=== PATIENT | female | born 1970 | race American Indian/Alaskan Native ===

== ENCOUNTER 2016-09-13 16:37 | Emergency (ER) | payer SELFPAY ==
[2016-09-13 16:48] VITALS: BP 147/90; RESP 18; TEMP 98; O2SAT 100
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
[2016-09-13 17:59] LABS: BASO % 0.2 % (0.0-2.0); EOS % 0.6 % (0.0-4.0); HEMATOCRIT 33.1 % (34.0-47.0); LYMPH % 38.5 % (20.0-40.0); MEAN CORPUSCULAR HEMOGLOBIN 30.1 pg (27.0-31.0); MEAN CORPUSCULAR HGB CONC 33.1 g/dL (33.0-37.0); MEAN PLATELET VOLUME 8.6 fL (7.2-11.7); MONO # 0.6 K/uL (0.0-0.8); MONO % 7.3 % (0.0-10.0); RED CELL DISTRIBUTION WIDTH 13.3 % (11.5-14.5); WHITE BLOOD COUNT 7.7 K/uL (4.8-10.8)
--- NOTE | 2016-09-13 17:59 | RAD ---
HISTORY: chest pain COMPARISON: None available. TECHNIQUE: Chest PA and lateral FINDINGS: Examination limited by habitus. LUNGS: No focal consolidation. Please note that chest x-ray has limited sensitivity for the detection of pulmonary masses. PLEURA: No significant pleural effusion identified. No definite pneumothorax . CARDIOVASCULAR: The cardiomediastinal silhouette appears within normal limits of size. OSSEOUS STRUCTURES: No acute osseous abnormality identified. VISUALIZED UPPER ABDOMEN: Unremarkable. OTHER FINDINGS: None. IMPRESSION: No focal consolidation, significant pleural effusion, or definite pneumothorax identified.
[2016-09-13 18:07] LABS: CHLORIDE 101 mmol/L (98-107); POTASSIUM 3.7 mmol/L (3.6-5.2); SODIUM 139 mmol/L (132-148)
[2016-09-13 18:09] LABS: GFR AFRICAN-AMERICAN > 60
[2016-09-13 18:10] LABS: BLOOD UREA NITROGEN 11 mg/dL (7-17); CALCIUM 8.4 mg/dl (8.6-10.4); CARBON DIOXIDE 27 mmol/L (22-30); GLUCOSE,RANDOM 77 mg/dL (65-105)
[2016-09-13 18:45] VITALS: PULSE 87
== END 2016-09-13 18:45 | disposition home or self-care (01) ==
LOC: C.ER 16:37
DX: F41.9 Anxiety disorder, unspecified (principal); R07.89 Other chest pain
CPT/HCPCS: 71020; 80048; 84484; 85025; 96374; 99285; J1885

== ENCOUNTER 2016-10-31 10:02 | Emergency (ER) | payer SELFPAY ==
[2016-10-31 10:11] VITALS: TEMP 98.4
[2016-10-31] MEDS ORDERED: Sodium Chloride 0.9% 1,000 ML IV ONE (10:57)
--- NOTE | 2016-10-31 10:58 | C.PDOC ---
History Of Present Illness 46 y/o female with Hx of HTN presents to ED with complaints of generalized weakness and left side headache since Thursday. Patient was seen [place] [facility] [place] for heat exhaustion after being outside working for september hours; pt c/o headache left side since then, despite taking ibuprofen 800 mg by mouth several times a day, with photophobia, no nausea, neck stiffness, fever or chills. pt also c/o generalized weakness. Time Seen by Provider: 10/31/16 10:28 Chief Complaint (Nursing): Headache History Per: Patient History/Exam Limitations: no limitations Onset/Duration Of Symptoms: Days Current Symptoms Are (Timing): Still Present Past Medical History Reviewed: Historical Data, Nursing Documentation, Vital Signs Vital Signs: Last Vital Signs Temp 98.4 F 10/31/16 10:10 Pulse 90 10/31/16 12:45 Resp 14 10/31/16 12:45 BP 144/71 10/31/16 12:45 Pulse Ox 100 10/31/16 14:46 - Medical History PMH: HTN Family History: States: Unknown Family Hx - Social History Hx Alcohol Use: No Hx Substance Use: No - Immunization History Hx Tetanus Toxoid Vaccination: No Hx Influenza Vaccination: No Hx Pneumococcal Vaccination: No Review Of Systems Constitutional: Negative for: Fever, Chills Eyes: Negative for: Vision Change Gastrointestinal: Negative for: Nausea, Vomiting, Diarrhea Genitourinary: Negative for: Dysuria Skin: Negative for: Rash Neurological: Positive for: Headache. Negative for: Weakness, Dizziness Physical Exam - Physical Exam Appears: Non-toxic, No Acute Distress Skin: Normal Color, Warm Head: Atraumatic, Normacephalic Eye(s): bilateral: Normal Inspection, PERRL, EOMI Oral Mucosa: Moist Tongue: Normal Appearing Lips: Normal Appearing Chest: Symmetrical, No Deformity, No Tenderness Cardiovascular: Rhythm Regular, No Murmur Respiratory: Normal Breath Sounds, No Rales, No Rhonchi, No Wheezing Gastrointestinal/Abdominal: Bowel Sounds, Soft, No Tenderness Extremity: Normal ROM, No Tenderness, No Pedal Edema Neurological/Psych: Oriented x3, Normal Speech, Normal Cognition, Normal Cranial Nerves, Normal Motor, Normal Sensation, Normal Reflexes Gait: Steady ED Course And Treatment - Laboratory Results Result Diagrams: 10/31/16 11:15 10/31/16 11:15 O2 Sat by Pulse Oximetry: 100 (RA) Pulse Ox Interpretation: Normal Medical Decision Making Medical Decision Making: pt feeling much better after ivf and iv reglan, headache resolved. labs normal. will d/c with pmd f/u. pt has been lying on stretcher through entire ed stay talking on phone in no acute distress. Disposition Counseled Patient/Family Regarding: Diagnosis, Need For Followup - Disposition Referrals: Mohinder Su Jr., MD [Medical Doctor] - Disposition: HOME/ ROUTINE Disposition Time: 12:34 Condition: IMPROVED Additional Instructions: Stay well hydrated. Follow up with your doctor in a few days. Return to ER for any worsening symptoms. 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 - Scribe Statement The provider has reviewed the documentation as recorded by the Scribguerline Andrews All medical record entries made by the Michelaibguerline were at my direction and personally dictated by me. I have reviewed the chart and agree that the record accurately reflects my personal performance of the history, physical exam, medical decision making, and the department course for this patient. I have also personally directed, reviewed, and agree with the discharge instructions and disposition.
[2016-10-31] MEDS ORDERED: Sodium Chloride 0.9% 1,000 ML ONE (11:13)
[2016-10-31 11:24] LABS: BASO % 0.2 % (0.0-2.0); EOS % 0.7 % (0.0-4.0); HEMATOCRIT 32.4 % (34.0-47.0); LYMPH # 1.8 K/uL (1.0-4.3); LYMPH % 30.1 % (20.0-40.0); MEAN CELL VOLUME 90.5 fL (81.0-99.0); MEAN CORPUSCULAR HEMOGLOBIN 31.2 pg (27.0-31.0); MEAN CORPUSCULAR HGB CONC 34.5 g/dL (33.0-37.0); MEAN PLATELET VOLUME 7.6 fL (7.2-11.7); MONO # 0.4 K/uL (0.0-0.8); MONO % 7.2 % (0.0-10.0); NRBC % 0.1 % (0.0-2.0)
[2016-10-31 11:39] LABS: CHLORIDE 105 mmol/L (98-107); POTASSIUM 3.8 mmol/L (3.6-5.2); SODIUM 140 mmol/L (132-148)
[2016-10-31 11:42] LABS: BLOOD UREA NITROGEN 15 mg/dL (7-17); CARBON DIOXIDE 27 mmol/L (22-30); GFR AFRICAN-AMERICAN > 60
[2016-10-31 11:43] LABS: CALCIUM 9.3 mg/dl (8.6-10.4); GLUCOSE,RANDOM 94 mg/dL (65-105); MAGNESIUM 2.1 mg/dL (1.6-2.3)
[2016-10-31 12:46] VITALS: BP 144/71; PULSE 90; RESP 14
[2016-10-31 12:51] VITALS: O2SAT 100
== END 2016-10-31 12:48 | disposition home or self-care (01) ==
LOC: C.ER 10:02
DX: R51 Headache (principal)
CPT/HCPCS: 80048; 83735; 85025; 96361; 96374; 99284; J2765; J7040

== ENCOUNTER 2017-07-30 03:35 | Inpatient (IN) | payer MEDICAID, OTHER ==
[2017-07-30 03:35] VITALS: BMI 34.1
--- NOTE | 2017-07-30 03:55 | C.PDOC ---
History Of Present Illness The patient presents to the ED for evaluation of a chest tightness and pressure- like sensation which began yesterday. 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 Patient took Ibuprofen at around 2300 today but presents to the ED because she still feels discomfort. She denies fever, chills, nausea, vomiting, extremity weakness. Time Seen by Provider: 07/30/17 03:55 Chief Complaint (Nursing): Chest Pain History Per: Patient History/Exam Limitations: no limitations Onset/Duration Of Symptoms: Hrs Current Symptoms Are (Timing): Still Present Severity: Moderate Pain Scale Rating Of: 4 Quality: Dull, Aching, Tightness, "Pain" Modifying Factors: None Exacerbating Factors: None Alleviating Factors: None Recent travel outside of the [place]: No Additional History Per: Patient Past Medical History Reviewed: Historical Data, Nursing Documentation, Vital Signs Vital Signs: Last Vital Signs Temp 97.8 F 07/30/17 03:47 Pulse 104 H 07/30/17 03:47 Resp 18 07/30/17 03:47 BP 134/96 H 07/30/17 03:47 Pulse Ox 99 07/30/17 04:48 - Medical History PMH: HTN Denies: Chronic Kidney Disease Surgical History: No Surg Hx Family History: States: No Known Family Hx - Social History Hx Alcohol Use: No Hx Substance Use: No - Immunization History Hx Tetanus Toxoid Vaccination: No Hx Influenza Vaccination: No Hx Pneumococcal Vaccination: No Review Of Systems Constitutional: Negative for: Fever, Chills Cardiovascular: Positive for: Other (chest tightness and pressure ). Negative for: Palpitations Respiratory: Negative for: Cough, Shortness of Breath Gastrointestinal: Negative for: Nausea, Vomiting, Abdominal Pain, Diarrhea Skin: Negative for: Rash, Lesions, Jaundice, Bruising Neurological: Negative for: Weakness, Numbness Psych: Negative for: Anxiety Physical Exam - Physical Exam Appears: Non-toxic, No Acute Distress Skin: Warm, Dry Head: Normacephalic Eye(s): bilateral: Normal Inspection Oral Mucosa: Moist Neck: Supple Chest: Symmetrical, No Deformity, No Tenderness Cardiovascular: Rhythm Regular, No Murmur Respiratory: No Rales, No Rhonchi, No Wheezing Extremity: Normal ROM, Capillary Refill (less than 2 seconds ) Extremity: Bilateral: Atraumatic Pulses: Left Dorsalis Pedis: Normal, Right Dorsalis Pedis: Normal Neurological/Psych: Oriented x3 Gait: Steady ED Course And Treatment - Laboratory Results Result Diagrams: 07/30/17 04:42 07/30/17 04:42 ECG: Interpreted By Me, Viewed By Me ECG Rhythm: Sinus Rhythm (95), Nonspecific Changes O2 Sat by Pulse Oximetry: 99 (on RA ) Pulse Ox Interpretation: Normal Progress Note: Bloodwork, urinalysis, EKG, CXR ordered and reviewed. Aspirin PO administered. Disposition Discussed With DrLaura: Jef Shetty Comment: accepted the pt on his service and took over the care at 5:45 AM Doctor Will See Patient In The: ED Counseled Patient/Family Regarding: Studies Performed, Diagnosis - Disposition Disposition: HOSPITALIZED Disposition Time: 03:55 Condition: FAIR Forms: [facility] (Uzbek) - Clinical Impression Clinical Impression: Chest pain - Scribe Statement The provider has reviewed the documentation as recorded by the Scribe (Lata Eng) Provider Attestation: All medical record entries made by the Scribe were at my direction and personally dictated by me. I have reviewed the chart and agree that the record accurately reflects my personal performance of the history, physical exam, medical decision making, and the department course for this patient. I have also personally directed, reviewed, and agree with the discharge instructions and disposition. Decision To Admit - Pt Status Changed To: Hospital Disposition Of: Observation - . Bed Request Type: Telemetry () Patient Diagnosis: Chest pain
[2017-07-30] MEDS ORDERED: Aspirin 325 mg EC Tablets PO STA (04:09)
[2017-07-30] MEDS ORDERED: Aspirin 325 mg EC Tablets PO ONE (04:26)
[2017-07-30 04:46] LABS: BASO % 0.5 % (0.0-2.0); EOS # 0.1 K/uL (0.0-0.7); HEMOGLOBIN 12.2 g/dL (11.0-16.0); LYMPH # 3.5 K/uL (1.0-4.3); LYMPH % 41.9 % (20.0-40.0); MEAN CELL VOLUME 88.9 fL (81.0-99.0); MEAN CORPUSCULAR HEMOGLOBIN 30.7 pg (27.0-31.0); MEAN CORPUSCULAR HGB CONC 34.5 g/dL (33.0-37.0); MEAN PLATELET VOLUME 7.4 fL (7.2-11.7); MONO # 0.5 K/uL (0.0-0.8); NEUT # 4.2 K/uL (1.8-7.0); NEUT % 50.6 % (50.0-75.0); NRBC % 0.1 % (0.0-2.0); RBC 3.97 Mil/uL (3.80-5.20); RED CELL DISTRIBUTION WIDTH 12.7 % (11.5-14.5); WHITE BLOOD COUNT 8.3 K/uL (4.8-10.8)
[2017-07-30 04:54] LABS: PROTHROMBIN TIME 11.4 SECONDS (9.7-12.2)
[2017-07-30 05:07] LABS: ALB/GLOB RATIO 1.1 (1.0-2.1); ALBUMIN 4.2 g/dL (3.5-5.0); ALT/SGPT 31 U/L (9-52); AST/SGOT 24 U/L (14-36); BLOOD UREA NITROGEN 13 mg/dL (7-17); GFR AFRICAN-AMERICAN > 60; GFR NON-AFRICAN AMERICAN > 60
[2017-07-30 05:54] LABS: SQUAMOUS EPITHIAL < 1 /hpf (0-5); URINE BACTERIA RARE (<OCC); URINE BILIRUBIN NEGATIVE (NEGATIVE); URINE CLARITY Clear (Clear); URINE COLOR Straw (YELLOW); URINE GLUCOSE (UA) NORMAL (Normal); URINE LEUKOCYTE ESTERASE NEG Leu/uL (Negative); URINE PROTEIN NEGATIVE (NEGATIVE); URINE UROBILINOGEN NORMAL mg/dL (0.2-1.0)
[2017-07-30 06:02] LABS: HCG,QUALITATIVE URINE NEGATIVE (NEGATIVE)
[2017-07-30 06:03] LABS: URINE BLOOD NEGATIVE (NEGATIVE)
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
[2017-07-30 12:11] LABS: HDL CHOLESTEROL 41 mg/dL (30-70)
[2017-07-30 12:22] LABS: CK-MB < 0.22 ng/mL (0.0-3.38); LDL CHOLESTEROL 143 mg/dL (0-129)
--- NOTE | 2017-07-30 15:53 | CARD ---
APPROVED REPORT EXAM: Two-dimensional and M-mode echocardiogram with Doppler and color Doppler. Other Information Quality : GoodRhythm : INDICATION Dyspnea Chest Pain Palpitations RISK FACTORS Hypertension 2D DIMENSIONS IVSd0.8 (0.7-1.1cm)LVDd4.7 (3.9-5.9cm) PWd0.9 (0.7-1.1cm)LVDs2.7 (2.5-4.0cm) FS (%) 43.2 %LVEF (%)74.3 (>50%) M-Mode DIMENSIONS Left Atrium (MM)3.34 (2.5-4.0cm)Aortic Root3.06 (2.2-3.7cm) Aortic Cusp Exc.2.08 (1.5-2.0cm) Mitral Valve MV E Craqmlvz07.3cm/sMV A Dgzmjtho70.0cm/sE/A ratio1.0 TDI E/Lateral E'0.0E/Medial E'0.0 Tricuspid Valve TR Peak Puncbimf101gu/sTR Peak Gr.[id number] LEFT VENTRICLE The left ventricle is normal size. There is borderline concentric left ventricular hypertrophy. The left ventricular function is normal. The left ventricular ejection fraction is within the normal range. There is normal LV segmental wall motion. Transmitral Doppler flow pattern is Grade I-abnormal relaxation pattern. RIGHT VENTRICLE The right ventricle is normal size. There is normal right ventricular wall thickness. The right ventricular systolic function is normal. ATRIA The left atrium size is normal. The right atrium size is normal. AORTIC VALVE The aortic valve is normal in structure. There is trace aortic regurgitation. There is no aortic valvular stenosis. MITRAL VALVE The mitral valve is mildly thickened. There is no mitral valve stenosis. TRICUSPID VALVE The tricuspid valve is normal in structure. There is trace tricuspid regurgitation. PULMONIC VALVE The pulmonary valve is normal in structure. There is trace pulmonic valvular regurgitation. GREAT VESSELS The aortic root is normal in size. The IVC is normal in size and collapses >50% with inspiration. PERICARDIAL EFFUSION There is no pericardial effusion. <Conclusion> The left ventricle is normal size. There is borderline concentric left ventricular hypertrophy. The left ventricular function is normal. The left ventricular ejection fraction is within the normal range. There is normal LV segmental wall motion. Transmitral Doppler flow pattern is Grade I-abnormal relaxation pattern.
[2017-07-30 16:07] VITALS: RESP 20
--- NOTE | 2017-07-30 16:19 | CP.PCM.DIS ---
Provider - Provider Date of Admission: 07/30/17 05:47 Attending physician: Meredith Pepe DO Consults: Dr. Dora Eng Time Spent in preparation of Discharge (in minutes): 35 Hospital Course - Lab Results Lab Results: Most Recent Lab Values WBC 8.3 K/uL (4.8-10.8) 07/30/17 04:42 RBC 3.97 Mil/uL (3.80-5.20) 07/30/17 04:42 Hgb 12.2 g/dL (11.0-16.0) 07/30/17 04:42 Hct 35.3 % (34.0-47.0) 07/30/17 04:42 MCV 88.9 fL (81.0-99.0) 07/30/17 04:42 MCH 30.7 pg (27.0-31.0) 07/30/17 04:42 MCHC 34.5 g/dL (33.0-37.0) 07/30/17 04:42 RDW 12.7 % (11.5-14.5) 07/30/17 04:42 Plt Count 261 K/uL (130-400) 07/30/17 04:42 MPV 7.4 fL (7.2-11.7) 07/30/17 04:42 Neut % (Auto) 50.6 % (50.0-75.0) 07/30/17 04:42 Lymph % (Auto) 41.9 % (20.0-40.0) H 07/30/17 04:42 [place] % (Auto) 6.0 % (0.0-10.0) 07/30/17 04:42 Eos % (Auto) 1.0 % (0.0-4.0) 07/30/17 04:42 Baso % (Auto) 0.5 % (0.0-2.0) 07/30/17 04:42 Neut # (Auto) 4.2 K/uL (1.8-7.0) 07/30/17 04:42 Lymph # (Auto) 3.5 K/uL (1.0-4.3) 07/30/17 04:42 [place] # (Auto) 0.5 K/uL (0.0-0.8) 07/30/17 04:42 Eos # (Auto) 0.1 K/uL (0.0-0.7) 07/30/17 04:42 Baso # (Auto) 0.0 K/uL (0.0-0.2) 07/30/17 04:42 PT 11.4 SECONDS (9.7-12.2) 07/30/17 04:42 INR 1.0 07/30/17 04:42 APTT 30 SECONDS (21-34) 07/30/17 04:42 D-Dimer, Quantitative 231 ng/mlDDU (0-243) 07/30/17 08:21 Sodium 141 mmol/L (132-148) 07/30/17 04:42 Potassium 3.9 mmol/L (3.6-5.2) 07/30/17 04:42 Chloride 101 mmol/L (98-107) 07/30/17 04:42 Carbon Dioxide 27 mmol/L (22-30) 07/30/17 04:42 Anion Gap 17 (10-20) 07/30/17 04:42 BUN 13 mg/dL (7-17) 07/30/17 04:42 Creatinine 0.9 mg/dL (0.7-1.2) 07/30/17 04:42 Est GFR ( Amer) > 60 07/30/17 04:42 Est GFR (Non-Af Amer) > 60 07/30/17 04:42 Random Glucose 90 mg/dL (65-105) 07/30/17 04:42 Hemoglobin A1c 5.6 % (4.2-6.5) 07/30/17 11:53 Calcium 9.0 mg/dl (8.6-10.4) 07/30/17 04:42 Total Bilirubin 0.3 mg/dL (0.2-1.3) 07/30/17 04:42 AST 24 U/L (14-36) 07/30/17 04:42 ALT 31 U/L (9-52) 07/30/17 04:42 Alkaline Phosphatase 57 U/L (38-126) 07/30/17 04:42 Total Creatine Kinase 123 U/L (30-135) 07/30/17 11:53 CK-MB (Mass) < 0.22 ng/mL (0.0-3.38) 07/30/17 11:53 Troponin I < 0.0120 ng/mL (0.00-0.120) 07/30/17 11:53 NT-Pro-B Natriuret Pep 20.5 pg/mL (0-450) 07/30/17 13:36 Total Protein 8.2 g/dL (6.3-8.3) 07/30/17 04:42 Albumin 4.2 g/dL (3.5-5.0) 07/30/17 04:42 Globulin 3.9 gm/dL (2.2-3.9) 07/30/17 04:42 Albumin/Globulin Ratio 1.1 (1.0-2.1) 07/30/17 04:42 Triglycerides 151 mg/dL (0-149) H 07/30/17 11:53 Cholesterol 217 mg/dL (0-199) H 07/30/17 11:53 LDL Cholesterol Direct 143 mg/dL (0-129) H 07/30/17 11:53 HDL Cholesterol 41 mg/dL (30-70) 07/30/17 11:53 Free T4 0.89 ng/dL (0.78-2.19) 07/30/17 11:53 TSH 3rd Generation 3.22 mIU/L (0.46-4.68) 07/30/17 11:53 Urine Color Straw (YELLOW) 07/30/17 05:47 Urine Clarity Clear (Clear) 07/30/17 05:47 Urine pH 6.0 (5.0-8.0) 07/30/17 05:47 Ur Specific [place] 1.008 (1.003-1.030) 07/30/17 05:47 Urine Protein Negative mg/dL (NEGATIVE) 07/30/17 05:47 Urine Glucose (UA) Normal mg/dL (Normal) 07/30/17 05:47 Urine Ketones Negative mg/dL (NEGATIVE) 07/30/17 05:47 Urine Blood Negative (NEGATIVE) 07/30/17 05:47 Urine Nitrate Negative (NEGATIVE) 07/30/17 05:47 Urine Bilirubin Negative (NEGATIVE) 07/30/17 05:47 Urine Urobilinogen Normal mg/dL (0.2-1.0) 07/30/17 05:47 Ur Leukocyte Esterase Neg [place]/uL (Negative) 07/30/17 05:47 Urine WBC (Auto) < 1 /hpf (0-5) 07/30/17 05:47 Urine RBC (Auto) 1 /hpf (0-3) 07/30/17 05:47 Ur Squamous Epith Cells < 1 /hpf (0-5) 07/30/17 05:47 Urine Bacteria Rare (<OCC) 07/30/17 05:47 Urine HCG, Qual Negative (NEGATIVE) 07/30/17 05:47 - Hospital Course Hospital Course: HPI: Patient is a 46 y/o F with past medical history of HTN who presents today for chest pain. Patient said the pain started suddenly at 6pm while she was driving over the left side of her chest which she rated 9/10 and described as a tight sharp pain. Patient says the pain radiates into the right side of her neck. The pain has not gone away, but has decreased to 7/10. Patient also felt like her heart was racing yesterday, but this has since resolved. Patient is slightly short of breath and noticed shortness of breath with activity yesterday. She felt winded walking up a flight of stairs which usually doesn't happen. Patient also has a headache which she said started at the same time as the chest pain. The headache is over her right hinduism and she rates it 10/10. Patient did not try to take any medications for either pains and says nothing makes them better or worse. Patient has not had any trauma or falls. Last night while watching TV patient also had a few minutes of blurry vision which resolved spontaneously. Around 11 pm patient said she had some tingling in her right arm and right side of her face which went away after a few minutes. 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 Patient worked 1 day ago and was in the car for 10 hours with a 1 hour break. Patient says she sometimes gets lower extremity swelling after driving for so many hours, but denies any swelling or pain in her lower extremities today. Patient has never had any of these symptoms before. Patient has never had an echo, but did have a stress test many years ago which was normal. Patient follows up regularly with her PCP and last saw him a few months ago. Patient has not been sick recently. Patient denies sore throat, cough, nasal congestion, extremity weakness, swelling, abdominal pain, nausea, vomiting , constipation, or diarrhea. Hospital Course Patient was found to have elevated cholesterol, triglycerides elevated, patient to be sent home with lipitor 20mg due to ASCVD 8.7% for 10 year risk heart disease or stroke, patient should be placed on moderate to high intensity statin. Troponins were negative x3. Echo showed left ventricular hypertrophy and grade I diastolic dysfunction. To follow up with primary care doctor in one week and training professional for outpatient stress test. Overnight, patient was given 30mg Imdur for chest pressure which resolved. Patient had a headache overnight. - Date & Time of H&P Date of H&P: 07/31/17 Time of H&P: 13:00 Discharge Exam - Head Exam Head Exam: ATRAUMATIC, NORMAL INSPECTION, NORMOCEPHALIC - Eye Exam Eye Exam: EOMI, Normal appearance - ENT Exam ENT Exam: Mucous Membranes Moist - Neck Exam Neck exam: Full Rom - Respiratory Exam Respiratory Exam: Clear to PA & Lateral, NORMAL BREATHING PATTERN. absent: Accessory Muscle Use - Cardiovascular Exam Cardiovascular Exam: REGULAR RHYTHM, +S1, +S2. absent: Bradycardia, Tachycardia - GI/Abdominal Exam GI & Abdominal Exam: Normal Bowel Sounds, Soft. absent: Hyperactive Bowel Sounds, Hypoactive Bowel Sounds - Extremities Exam Extremities exam: full ROM - Back Exam Back exam: FULL ROM - Neurological Exam Neurological exam: Alert, CN II-XII Intact, Normal Gait, Oriented x3, Reflexes Normal - Psychiatric Exam Psychiatric exam: Normal Affect, Normal Mood - Skin Skin Exam: Dry, Intact, Normal Color, Warm Discharge Plan - Discharge Medications Prescriptions: amLODIPine [Norvasc] 10 mg PO DAILY #14 tab Atorvastatin [Lipitor] 20 mg PO HS #14 tab Isosorbide Mononitrate ER [Imdur ER] 30 mg PO DAILY #14 tab Metoprolol Succinate [Toprol XL] 50 mg PO DAILY #14 tab - Follow Up Plan Condition: IMPROVED Disposition: HOME/ ROUTINE Instructions: Heart Healthy Diet, High Blood Pressure (DC), Chest Pain (DC), Atorvastatin Additional Instructions: follow up with training professional for outpatient stress test follow up with primary care doctor for updating medications, workshop manager referral for high cholesterol consider low fat diet, exercise, less red meat, low sodium diet
--- NOTE | 2017-07-30 19:16 | CP.PCM.PN ---
<CarmenShelli - Last Filed: 07/30/17 19:19> Subjective - Date & Time of Evaluation Date of Evaluation: 07/30/17 Time of Evaluation: 19:13 - Subjective Subjective: Progress Note Patient seen and examined at bedside. No acute events overnight. Patient said her chest pressure is present throughout the day but got better with nitro. Patient denies cough, hemoptysis, nausea, vomiting, diarrhea. Objective - Vital Signs/Intake and Output Vital Signs (last 24 hours): Temp Pulse Resp BP Pulse Ox 97.8 F 80 20 142/89 96 07/30/17 15:04 07/30/17 15:04 07/30/17 15:04 07/30/17 15:04 07/30/17 15:04 Intake and Output: 07/30/17 07/31/17 18:59 06:59 Intake Total 400 Balance 400 - Medications Medications: Current Medications Aspirin (Aspirin Chewable) 81 mg PO DAILY [facility] Famotidine (Pepcid) 20 mg PO DAILY [facility] Last Admin: 07/30/17 10:39 Dose: 20 mg Heparin Sodium (Porcine) (Heparin) 5,000 units SC Q8 [facility] Last Admin: 07/30/17 14:18 Dose: 5,000 units Isosorbide Mononitrate (Imdur Er) 30 mg PO DAILY [facility] Metoprolol Succinate (Toprol Xl) 50 mg PO DAILY [facility] Rosuvastatin Calcium (Crestor) 10 mg PO HS [facility] - Labs Labs: 07/30/17 04:42 07/30/17 04:42 PT 11.4 SECONDS (9.7-12.2) 07/30/17 04:42 INR 1.0 07/30/17 04:42 APTT 30 SECONDS (21-34) 07/30/17 04:42 - Constitutional Appears: Non-toxic, No Acute Distress - Head Exam Head Exam: ATRAUMATIC, NORMAL INSPECTION, NORMOCEPHALIC - Eye Exam Eye Exam: EOMI, Normal appearance - ENT Exam ENT Exam: Mucous Membranes Moist, Normal Exam - Neck Exam Neck Exam: Full ROM - Respiratory Exam Respiratory Exam: NORMAL BREATHING PATTERN. absent: Accessory Muscle Use, Chest Wall Tenderness - Cardiovascular Exam Cardiovascular Exam: REGULAR RHYTHM, +S1, +S2. absent: Bradycardia, Tachycardia , Irregular Rhythm, Rubs - GI/Abdominal Exam GI & Abdominal Exam: Soft, Normal Bowel Sounds. absent: Tenderness - Extremities Exam Extremities Exam: Full ROM. absent: Pedal Edema - Neurological Exam Neurological Exam: Alert, Awake, CN II-XII Intact, Normal Gait, Oriented x3 - Psychiatric Exam Psychiatric exam: Normal Affect, Normal Mood - Skin Skin Exam: Dry, Intact, Normal Color, Warm Assessment and Plan - Assessment and Plan (Free Text) Assessment: 1. Chest pain r/o ACS admitted to telemetry Trop I (-) , EKG NSR at 95bmp with left ventricular hypertrophy f/u SERA and EKG x2 echo ordered HgA1c 5.6 Lipid Panel TG 151, Cholesterol 217, LDL 143, HDL 41 TSH, T4 within normal range cardiology consulted, Dr. Eng: started patient on toprol 50mg XL and Imdur 30mg PO QD medications: ASA 325mg given in ED continue home medication ASA 81mg po daily Crestor 5mg daily increased to Crestor 10mg daily Patient to be discharged on toprol 50mg XL and Imdur 30mg POQD along with Lipitor 20mg daily 2. SOB d-dimer 231 perc score of 1 3. HTN medications adjusted. please see above 4. Prophylaxis Pepcid 20mg po daily Heparin 5000 u sc q8h, SCDs <Meredith Pepe V - Last Filed: 07/31/17 16:15> Objective - Vital Signs/Intake and Output Vital Signs (last 24 hours): Temp Pulse Resp BP Pulse Ox 97.9 F 90 20 107/66 100 07/31/17 07:36 07/31/17 07:40 07/31/17 07:36 07/31/17 07:36 07/31/17 07:36 Intake and Output: 07/31/17 07/31/17 06:59 18:59 Intake Total 360 Balance 360 - Medications Medications: Current Medications Aspirin (Aspirin Chewable) 81 mg PO DAILY [facility] Last Admin: 07/31/17 10:03 Dose: 81 mg Famotidine (Pepcid) 20 mg PO DAILY [facility] Last Admin: 07/31/17 10:03 Dose: 20 mg Heparin Sodium (Porcine) (Heparin) 5,000 units SC Q8 [facility] Last Admin: 07/31/17 06:13 Dose: 5,000 units Metoprolol Succinate (Toprol Xl) 50 mg PO DAILY [facility] Rosuvastatin Calcium (Crestor) 10 mg PO HS [facility] Last Admin: 07/30/17 21:28 Dose: 10 mg - Labs Labs: 07/30/17 04:42 07/30/17 04:42 PT 11.4 SECONDS (9.7-12.2) 07/30/17 04:42 INR 1.0 07/30/17 04:42 APTT 30 SECONDS (21-34) 07/30/17 04:42 Attending/Attestation - Attestation I have personally seen and examined this patient.: Yes I have fully participated in the care of the patient.: Yes I have reviewed all pertinent clinical information, including history, physical exam and plan: Yes Notes (Text): This is late computer entry for 07/30/17. patient seen, examined and case discussed with day-time resident. Patient seen and examined with her at bedside. Patient reports she felt chest pain that started yesterday, on and off. Patient reports she takes aspirin daily at home as recommended. Patient reports she takes Norvasc 5mg 1 tab daily. She does not smoke and is making dietary changes. patient reported mild swelling over lower extremities following long work days. 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 Patient reports she has had a stress test about 3-4 years ago which she reports is normal. Patient's blood pressure medication increased to Norvasc 10mg 1 tab PO daily. Discussed case with cardiology, recommended to start Metoprolol XL 50mg PO once day. Recommended for outpatient stress test. Patient re-evaluated in the evening. Reported chest pain came back. It had resolved with Nitro SL in the afternoon. Resident spoke with cardiology, recommended for low dose Imdur 30mg PO daily. We will monitor patient overnight for possible discharge tomorrow. Assessment/Plan 1. Chest pain * observation to telemetry * EVELIO: 3 points * ASCVD: 8.2% risk of cardiovascular event in next 10 years * Cardiology: Dr Juju Eng commercial loan collection officer-->help appreciated * Aspirin 81mg PO daily * SERA X3: negative * Hgb1c: 5.6 * Lipid Panel TG 151, Cholesterol 217, LDL 143, HDL 41 * TSH, T4 within normal range * Crestor 10mg POqHS * Echocardiogram (07/30/17): left ventricle is normal size. borderline concentric left ventricular hypertrophy, left ventricular function is normal, left ventricular ejection fraction is within normal range. normal LV segmental wall motion. Trasmitral doppler flow pattern is grade 1-abnormal relaxation pattern 2. Shortness of Breathe * d-dimer 231 * Perc score of 0 * Patient is saturating well on room air. in no acute distress. * Official report pending on chest xray 3. Uncontrolled hypertension * Echocardiogram (07/30/17): left ventricle is normal size. borderline concentric left ventricular hypertrophy, left ventricular function is normal, left ventricular ejection fraction is within normal range. normal LV segmental wall motion. Trasmitral doppler flow pattern is grade 1-abnormal relaxation pattern * Given norvasc 10mg PO daily * Start Imdur 30mg PO daily--->started in the evening will monitored overnight * Start Toprol XL 50mg PO daily * Aspirin 81mg PO daily 4. 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 Prophylaxis * Pepcid 20mg po daily * Heparin 5000 u sc q8h, SCDs
[2017-07-30 19:56] LABS: CK-MB < 0.22 ng/mL (0.0-3.38)
--- NOTE | 2017-07-30 23:38 | CON ---
CARDIOLOGY CONSULTATION DATE: HISTORY OF PRESENT ILLNESS: This is a 46-year-old black female who came to the emergency room with history of chest tightness and pressure-like sensation which began on the day of admission. The patient took ibuprofen and it was not helping, so she came to the emergency room. 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 The patient denies having any fever, chills, nausea, vomiting, diaphoresis, or dizziness. No palpitation. REVIEW OF SYSTEMS: CARDIOVASCULAR: Positive for chest pain, atypical type. RESPIRATORY: Negative for shortness of breath. GI: Negative for nausea, vomiting, abdominal pain. 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 EXTREMITIES: No edema of the legs. PAST MEDICAL HISTORY: History of chest pain and high blood pressure. The patient has family history of coronary artery disease. The patient claims she has exercise test done 4 years ago which was negative. SOCIAL HISTORY: Nonsmoker, no alcohol, no IVDA. ALLERGIES: NO KNOWN ALLERGIES. MEDICATIONS: The patient not on any medication. PHYSICAL EXAMINATION: VITAL SIGNS: This is a 46-year-old black female, alert, oriented, comfortable with temperature 97.8, pulse 104, respirations 18, blood pressure 134/96 mmHg, pulse oxygen 99% on room air. HEENT: Normal. JVP is flat. Carotids, no bruits. LUNGS: No rales, no wheezing. HEART: S1, S2 normal. No gallop, no murmur. ABDOMEN: Soft, nontender. No organomegaly seen. There is no focal neurological deficit. No edema on the legs. EKG: EKG is normal sinus rhythm with left ventricular hypertrophy and nonspecific ST-T changes. LAB WORK: Within normal limit. First set of troponin is negative. IMPRESSION: Atypical chest pain. Hypertension. Suggest I agree with present management. We will do workup to rule out myocardial infarction. Echocardiogram is done. We will review. We will add metoprolol succinate plus amlodipine to control the blood pressure. The patient should have exercise test as an outpatient. Right now, we will control the blood pressure. Jason Eng MD
[2017-07-31] MEDS ORDERED: Sodium Chloride 0.9% 1,000 ML IV SCH (08:15)
--- NOTE | 2017-07-31 12:17 | VASCLAB ---
PROCEDURE: Lower Extremity Venous Duplex Exam. HISTORY: lower extremity edema PRIORS: None. TECHNIQUE: Bilateral common femoral, femoral, popliteal and posterior tibial, peroneal and great saphenous veins were evaluated. Flow was assessed with color Doppler, compressibility, assessment of phasic flow and augmentation response. Report prepared by Jt Allen, AURELIO, RVT FINDINGS: RIGHT: 1. Common Femoral Vein: 1.1. Compressibility - Fully compressible: Thrombus - None : Flow - Phasic: Augmentation -Normal: Reflux - None. 2. Femoral Vein: 2.1. Compressibility - Fully compressible: Thrombus - None : Flow - Phasic: Augmentation -Normal: Reflux - None. 3. Popliteal Vein: 3.1. Compressibility - Fully compressible: Thrombus - None : Flow - Phasic: Augmentation -Normal: Reflux - None. 4. Posterior Tibial Vein: 4.1. Compressibility - Fully compressible: Thrombus - None: Flow - Phasic: Augmentation -Normal: Reflux - None. 5. Peroneal Vein: 5.1. Compressibility - Fully compressible: Thrombus - None: Flow - Phasic: Augmentation -Normal: Reflux - None. 6. Great Saphenous Vein: 6.1. Compressibility - Fully compressible: Thrombus - None: Flow - Phasic: Augmentation - Normal: Reflux - None. LEFT: 1. Common Femoral Vein: 1.1. Compressibility - Fully compressible: Thrombus - None: Flow - Phasic: Augmentation -Normal: Reflux - None. 2. Femoral Vein: 2.1. Compressibility - Fully compressible: Thrombus - None: Flow - Phasic: Augmentation -Normal: Reflux - None. 3. Popliteal Vein: 3.1. Compressibility - Fully compressible: Thrombus - None : Flow - Phasic: Augmentation -Normal: Reflux - None. 4. Posterior Tibial Vein: 4.1. Compressibility - Fully compressible: Thrombus - None: Flow - Phasic: Augmentation -Normal: Reflux - None. 5. Peroneal Vein: 5.1. Compressibility - Fully compressible: Thrombus - None: Flow - Phasic: Augmentation -Normal: Reflux - None. 6. Great Saphenous Vein: 6.1. Compressibility - Fully compressible: Thrombus - None: Flow - Phasic: Augmentation - Normal: Reflux - None. OTHER FINDINGS: Right: None significant. Left: None significant. IMPRESSION: Right: No evidence of deep or superficial vein thrombosis of the right lower extremity. Normal valve function noted of the right side. Left: No evidence of deep or superficial vein thrombosis of the left lower extremity. Normal valve function noted of the left side.
--- NOTE | 2017-07-31 13:48 | RAD ---
HISTORY: chest pain COMPARISON: Chest x-ray performed 09/13/16 TECHNIQUE: Chest, one view. FINDINGS: Examination limited by habitus. LUNGS: No focal consolidation. Please note that chest x-ray has limited sensitivity for the detection of pulmonary masses. PLEURA: No significant pleural effusion identified. No definite pneumothorax . CARDIOVASCULAR: The cardiomediastinal silhouette appears within normal limits of size. OSSEOUS STRUCTURES: No acute osseous abnormality identified. VISUALIZED UPPER ABDOMEN: Unremarkable. OTHER FINDINGS: None. IMPRESSION: No acute findings identified.
[2017-07-31] MEDS: Metoprolol Succinate 50 mg XL Tab PO SCH (13:50)
[2017-07-31 14:32] LABS: ALBUMIN 3.8 g/dL (3.5-5.0); ALT/SGPT 25 U/L (9-52); AST/SGOT 20 U/L (14-36); BLOOD UREA NITROGEN 10 mg/dL (7-17); CALCIUM 8.9 mg/dl (8.6-10.4); GFR AFRICAN-AMERICAN > 60; GFR NON-AFRICAN AMERICAN > 60
--- NOTE | 2017-07-31 15:36 | CP.PCM.PN ---
<CarmenShelli - Last Filed: 07/31/17 15:33> Subjective - Date & Time of Evaluation Date of Evaluation: 07/31/17 Time of Evaluation: 15:33 Objective - Vital Signs/Intake and Output Vital Signs (last 24 hours): Temp Pulse Resp BP Pulse Ox 97.9 F 90 20 107/66 100 07/31/17 07:36 07/31/17 07:40 07/31/17 07:36 07/31/17 07:36 07/31/17 07:36 Intake and Output: 07/31/17 07/31/17 06:59 18:59 Intake Total 360 Balance 360 - Medications Medications: Current Medications Aspirin (Aspirin Chewable) 81 mg PO DAILY [facility] Last Admin: 07/31/17 10:03 Dose: 81 mg Famotidine (Pepcid) 20 mg PO DAILY [facility] Last Admin: 07/31/17 10:03 Dose: 20 mg Heparin Sodium (Porcine) (Heparin) 5,000 units SC Q8 [facility] Last Admin: 07/31/17 13:51 Dose: 5,000 units Ketorolac Tromethamine (Toradol) 30 mg IVP STAT STA Stop: 07/31/17 15:32 Metoprolol Succinate (Toprol Xl) 50 mg PO DAILY [facility] Last Admin: 07/31/17 13:50 Dose: 50 mg Rosuvastatin Calcium (Crestor) 10 mg PO HS [facility] Last Admin: 07/30/17 21:28 Dose: 10 mg - Labs Labs: 07/30/17 04:42 07/31/17 14:03 PT 11.4 SECONDS (9.7-12.2) 07/30/17 04:42 INR 1.0 07/30/17 04:42 APTT 30 SECONDS (21-34) 07/30/17 04:42 - Constitutional Appears: Non-toxic, No Acute Distress - Head Exam Head Exam: ATRAUMATIC, NORMAL INSPECTION, NORMOCEPHALIC - Eye Exam Eye Exam: EOMI, Normal appearance Pupil Exam: NORMAL ACCOMODATION, PERRL - ENT Exam ENT Exam: Mucous Membranes Moist, Normal Exam - Neck Exam Neck Exam: Full ROM. absent: Thyromegaly - Respiratory Exam Respiratory Exam: Clear to Ausculation Bilateral, NORMAL BREATHING PATTERN. absent: Accessory Muscle Use - Cardiovascular Exam Cardiovascular Exam: REGULAR RHYTHM, +S1, +S2. absent: Bradycardia, Tachycardia Additional comments: reproducible chest pain on palpation - GI/Abdominal Exam GI & Abdominal Exam: Soft, Normal Bowel Sounds. absent: Tenderness, Hyperactive Bowel Sounds, Organomegaly - Extremities Exam Extremities Exam: Full ROM, Normal Capillary Refill, Normal Inspection. absent : Pedal Edema - Back Exam Back Exam: Full ROM, NORMAL INSPECTION. absent: paraspinal tenderness - Neurological Exam Neurological Exam: Awake, CN II-XII Intact, Oriented x3 - Psychiatric Exam Psychiatric exam: Normal Affect, Normal Mood - Skin Skin Exam: Dry, Intact, Normal Color, Warm Assessment and Plan - Assessment and Plan (Free Text) Assessment: 1. Chest pain r/o ACS admitted to telemetry Trop I (-) , EKG NSR at 95bmp with left ventricular hypertrophy f/u SERA and EKG x3 echo ordered HgA1c 5.6 Lipid Panel TG 151, Cholesterol 217, LDL 143, HDL 41 TSH, T4 within normal range cardiology consulted, Dr. Eng: started patient on Toprol 50mg XL and Imdur 30mg PO QD medications: ASA 325mg given in ED continue home medication ASA 81mg po daily Crestor 5mg daily increased to Crestor 10mg daily Patient to be discharged on toprol 50mg XL and Imdur 30mg POQD along with Lipitor 20mg daily Pain: toradol 2. SOB d-dimer 231 perc score of 1 3. HTN medications adjusted. please see above 4. Prophylaxis Pepcid 20mg po daily Heparin 5000 u sc q8h, SCDs Shelli Morales DO PGY1 <Meredith Pepe V - Last Filed: 08/01/17 07:03> Subjective - Subjective Subjective: Patient seen this morning during rounds. Patient reports chest pain had resolved but she has persistent headache. Patient also reports she has pain on palpation over the left side of breast when I press. Patient had received two dose of Motrin 600mg PO X1 by the night resident. Denies cough, denies abdominal pain, denies nausea, denies constipation, denies diarrhea, denies urinary symptoms. Patient reports she is ambulatory. Her at bedside. Objective - Vital Signs/Intake and Output Vital Signs (last 24 hours): Temp Pulse Resp BP Pulse Ox 97.9 F 72 20 107/66 100 07/31/17 07:36 07/31/17 16:00 07/31/17 07:36 07/31/17 07:36 07/31/17 16:00 Intake and Output: 07/31/17 07/31/17 06:59 18:59 Intake Total 360 Balance 360 - Medications Medications: Current Medications Aspirin (Aspirin Chewable) 81 mg PO DAILY [facility] Last Admin: 07/31/17 10:03 Dose: 81 mg Famotidine (Pepcid) 20 mg PO DAILY [facility] Last Admin: 07/31/17 10:03 Dose: 20 mg Heparin Sodium (Porcine) (Heparin) 5,000 units SC Q8 [facility] Last Admin: 07/31/17 13:51 Dose: 5,000 units Metoprolol Succinate (Toprol Xl) 50 mg PO DAILY [facility] Last Admin: 07/31/17 13:50 Dose: 50 mg Rosuvastatin Calcium (Crestor) 10 mg PO HS [facility] Last Admin: 07/30/17 21:28 Dose: 10 mg - Labs Labs: 07/30/17 04:42 07/31/17 14:03 PT 11.4 SECONDS (9.7-12.2) 07/30/17 04:42 INR 1.0 07/30/17 04:42 APTT 30 SECONDS (21-34) 07/30/17 04:42 Attending/Attestation - Attestation I have personally seen and examined this patient.: Yes I have fully participated in the care of the patient.: Yes I have reviewed all pertinent clinical information, including history, physical exam and plan: Yes Notes (Text): Patient seen, examined and case discussed with medical records field technician. Patient seen this morning during rounds. Patient reports chest pain had resolved but she has persistent headache. Patient also reports she has pain on palpation over the left side of breast when I press. Patient had received two dose of Motrin 600mg PO X1 by the night resident. Blood pressure low normal. She received Imdur overnight side effect headache. Will IV fluids and reassess patient in the afternoon Patient reports she completed the venous doppler this morning awaiting report. Patient re-evaluated headache persistent, travelling from back to top. Ordered for Head CT and pending Repeat EKG and head CT. Changed to inpatient for persistent symptoms Assessment/Plan 1. Chest pain * observation to telemetry * EVELIO: 3 points * ASCVD: 8.2% risk of cardiovascular event in next 10 years * Cardiology: Dr V. Eng consulting practice director-->help appreciated * Aspirin 81mg PO daily * SERA X3: negative * Hgb1c: 5.6 * Lipid Panel TG 151, Cholesterol 217, LDL 143, HDL 41 * TSH, T4 within normal range * Crestor 10mg POqHS * Echocardiogram (07/30/17): left ventricle is normal size. borderline concentric left ventricular hypertrophy, left ventricular function is normal, left ventricular ejection fraction is within normal range. normal LV segmental wall motion. Trasmitral doppler flow pattern is grade 1-abnormal relaxation pattern * Chest xray (07/30/17): no acute changes * proBNP: normal 2. Shortness of Breathe (resolved) * d-dimer 231 * Perc score of 0 * Patient is saturating well on room air. in no acute distress. * Chest xray (07/30/17): no acute changes 3. Uncontrolled hypertension * Echocardiogram (07/30/17): left ventricle is normal size. borderline concentric left ventricular hypertrophy, left ventricular function is normal, left ventricular ejection fraction is within normal range. normal LV segmental wall motion. Trasmitral doppler flow pattern is grade 1-abnormal relaxation pattern * Given norvasc 10mg PO daily * Held Imdur 30mg PO daily SE: headache * Start Toprol XL 50mg PO daily * Aspirin 81mg PO daily 4. 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 Prophylaxis * Pepcid 20mg po daily * Heparin 5000 u sc q8h, SCDs
[2017-07-31 16:53] LABS: CK-MB < 0.22 ng/mL (0.0-3.38)
--- NOTE | 2017-07-31 18:15 | CT ---
PROCEDURE: CT HEAD WITHOUT CONTRAST. HISTORY: persistent headache COMPARISON: None available. TECHNIQUE: Axial computed tomography images were obtained through the head/brain without intravenous contrast. Coronal and sagittal reconstructed images. Radiation dose: Total exam DLP = 1058.65 mGy-cm. This CT exam was performed using one or more of the following dose reduction techniques: Automated exposure control, adjustment of the mA and/or kV according to patient size, and/or use of iterative reconstruction technique. FINDINGS: HEMORRHAGE: No intracranial hemorrhage. BRAIN: No mass effect or edema. No atrophy or chronic microvascular ischemic changes. VENTRICLES: Unremarkable. No hydrocephalus. CALVARIUM: Unremarkable. PARANASAL SINUSES: Unremarkable as visualized. No significant inflammatory changes. MASTOID AIR CELLS: Unremarkable as visualized. No inflammatory changes. OTHER FINDINGS: None. IMPRESSION: No acute intracranial abnormalities. No significant findings to account for the clinical presentation.
[2017-08-01 00:57] VITALS: O2SAT 99
[2017-08-01 08:05] VITALS: BP 129/87; PULSE 76; TEMP 98.1
[2017-08-01] MEDS: Metoprolol Succinate 50 mg XL Tab PO SCH (09:49)
--- NOTE | 2017-08-01 13:34 | CP.PCM.DIS ---
<Jensen Sanchez - Last Filed: 08/01/17 13:26> Provider - Provider Date of Admission: 07/31/17 19:12 Attending physician: Meredith Pepe DO Primary care physician: ALICIA: Barrett Su Consults: [employer] Instructor: Dr Jason Eng Time Spent in preparation of Discharge (in minutes): 42 Hospital Course - Lab Results Lab Results: Most Recent Lab Values WBC 8.3 K/uL (4.8-10.8) 07/30/17 04:42 RBC 3.97 Mil/uL (3.80-5.20) 07/30/17 04:42 Hgb 12.2 g/dL (11.0-16.0) 07/30/17 04:42 Hct 35.3 % (34.0-47.0) 07/30/17 04:42 MCV 88.9 fL (81.0-99.0) 07/30/17 04:42 MCH 30.7 pg (27.0-31.0) 07/30/17 04:42 MCHC 34.5 g/dL (33.0-37.0) 07/30/17 04:42 RDW 12.7 % (11.5-14.5) 07/30/17 04:42 Plt Count 261 K/uL (130-400) 07/30/17 04:42 MPV 7.4 fL (7.2-11.7) 07/30/17 04:42 Neut % (Auto) 50.6 % (50.0-75.0) 07/30/17 04:42 Lymph % (Auto) 41.9 % (20.0-40.0) H 07/30/17 04:42 [place] % (Auto) 6.0 % (0.0-10.0) 07/30/17 04:42 Eos % (Auto) 1.0 % (0.0-4.0) 07/30/17 04:42 Baso % (Auto) 0.5 % (0.0-2.0) 07/30/17 04:42 Neut # (Auto) 4.2 K/uL (1.8-7.0) 07/30/17 04:42 Lymph # (Auto) 3.5 K/uL (1.0-4.3) 07/30/17 04:42 [place] # (Auto) 0.5 K/uL (0.0-0.8) 07/30/17 04:42 Eos # (Auto) 0.1 K/uL (0.0-0.7) 07/30/17 04:42 Baso # (Auto) 0.0 K/uL (0.0-0.2) 07/30/17 04:42 PT 11.4 SECONDS (9.7-12.2) 07/30/17 04:42 INR 1.0 07/30/17 04:42 APTT 30 SECONDS (21-34) 07/30/17 04:42 D-Dimer, Quantitative 231 ng/mlDDU (0-243) 07/30/17 08:21 Sodium 141 mmol/L (132-148) 07/31/17 14:03 Potassium 3.8 mmol/L (3.6-5.2) 07/31/17 14:03 Chloride 104 mmol/L (98-107) 07/31/17 14:03 Carbon Dioxide 26 mmol/L (22-30) 07/31/17 14:03 Anion Gap 15 (10-20) 07/31/17 14:03 BUN 10 mg/dL (7-17) 07/31/17 14:03 Creatinine 0.9 mg/dL (0.7-1.2) 07/31/17 14:03 Est GFR ( Amer) > 60 07/31/17 14:03 Est GFR (Non-Af Amer) > 60 07/31/17 14:03 Random Glucose 99 mg/dL (65-105) 07/31/17 14:03 Hemoglobin A1c 5.6 % (4.2-6.5) 07/30/17 11:53 Calcium 8.9 mg/dl (8.6-10.4) 07/31/17 14:03 Phosphorus 3.5 mg/dL (2.5-4.5) 07/31/17 14:03 Magnesium 1.9 mg/dL (1.6-2.3) 07/31/17 14:03 Total Bilirubin 0.3 mg/dL (0.2-1.3) 07/31/17 14:03 AST 20 U/L (14-36) 07/31/17 14:03 ALT 25 U/L (9-52) 07/31/17 14:03 Alkaline Phosphatase 57 U/L (38-126) 07/31/17 14:03 Total Creatine Kinase 92 U/L (30-135) 07/31/17 14:03 CK-MB (Mass) < 0.22 ng/mL (0.0-3.38) 07/31/17 14:03 Troponin I < 0.0120 ng/mL (0.00-0.120) 07/31/17 14:03 NT-Pro-B Natriuret Pep 20.5 pg/mL (0-450) 07/30/17 13:36 Total Protein 7.5 g/dL (6.3-8.3) 07/31/17 14:03 Albumin 3.8 g/dL (3.5-5.0) 07/31/17 14:03 Globulin 3.7 gm/dL (2.2-3.9) 07/31/17 14:03 Albumin/Globulin Ratio 1.0 (1.0-2.1) 07/31/17 14:03 Triglycerides 151 mg/dL (0-149) H 07/30/17 11:53 Cholesterol 217 mg/dL (0-199) H 07/30/17 11:53 LDL Cholesterol Direct 143 mg/dL (0-129) H 07/30/17 11:53 HDL Cholesterol 41 mg/dL (30-70) 07/30/17 11:53 Free T4 0.89 ng/dL (0.78-2.19) 07/30/17 11:53 TSH 3rd Generation 3.22 mIU/L (0.46-4.68) 07/30/17 11:53 Urine Color Straw (YELLOW) 07/30/17 05:47 Urine Clarity Clear (Clear) 07/30/17 05:47 Urine pH 6.0 (5.0-8.0) 07/30/17 05:47 Ur Specific [place] 1.008 (1.003-1.030) 07/30/17 05:47 Urine Protein Negative mg/dL (NEGATIVE) 07/30/17 05:47 Urine Glucose (UA) Normal mg/dL (Normal) 07/30/17 05:47 Urine Ketones Negative mg/dL (NEGATIVE) 07/30/17 05:47 Urine Blood Negative (NEGATIVE) 07/30/17 05:47 Urine Nitrate Negative (NEGATIVE) 07/30/17 05:47 Urine Bilirubin Negative (NEGATIVE) 07/30/17 05:47 Urine Urobilinogen Normal mg/dL (0.2-1.0) 07/30/17 05:47 Ur Leukocyte Esterase Neg Juan Carlos/uL (Negative) 07/30/17 05:47 Urine WBC (Auto) < 1 /hpf (0-5) 07/30/17 05:47 Urine RBC (Auto) 1 /hpf (0-3) 07/30/17 05:47 Ur Squamous Epith Cells < 1 /hpf (0-5) 07/30/17 05:47 Urine Bacteria Rare (<OCC) 07/30/17 05:47 Urine HCG, Qual Negative (NEGATIVE) 07/30/17 05:47 - Hospital Course Hospital Course: CC: Chest pain HPI: Patient is a 46 y/o F with past medical history of HTN who presents today for chest pain. Patient said the pain started suddenly at 6pm while she was driving over the left side of her chest which she rated 9/10 and described as a tight sharp pain. Patient says the pain radiates into the right side of her neck. The pain has not gone away, but has decreased to 7/10. Patient also felt like her heart was racing yesterday, but this has since resolved. Patient is slightly short of breath and noticed shortness of breath with activity yesterday. She felt winded walking up a flight of stairs which usually doesn't happen. Patient also has a headache which she said started at the same time as the chest pain. The headache is over her right denominational and she rates it 10/10. Patient did not try to take any medications for either pains and says nothing makes them better or worse. Patient has not had any trauma or falls. Last night while watching TV patient also had a few minutes of blurry vision which resolved spontaneously. Around 11 pm patient said she had some tingling in her right arm and right side of her face which went away after a few minutes. 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 Patient worked 1 day ago and was in the car for 10 hours with a 1 hour break. Patient says she sometimes gets lower extremity swelling after driving for so many hours, but denies any swelling or pain in her lower extremities today. Patient has never had any of these symptoms before. Patient has never had an echo, but did have a stress test many years ago which was normal. Patient follows up regularly with her PCP and last saw him a few months ago. Patient has not been sick recently. Patient denies sore throat, cough, nasal congestion, extremity weakness, swelling, abdominal pain, nausea, vomiting , constipation, or diarrhea. PMD: Caesar Su PMHx: HTN Psurg: Tubal ligation 1999 Famhx: Father: living, ID in 30s, HTN, DMII Paternal grandmother: of ID in 30s Maternal grandmother: living, ID in 60s SocialHx: denies tobacco, alcohol, drugs. 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 She was observed on telemetry. Her SERA panel was negative x3. Her EKG was also normal sinus rhythm. Her EVELIO score was 3 with an ASCVD of 8.2% risk of cardiovascular event in next 10 years. Thus facialist was consulted, Dr Jason Eng. Lipid Panel was: TG 151, Cholesterol 217, LDL 143, HDL 41. TSH , T4 within normal range. ProBNP was normal. Of note, her chest pain was reproducible upon palpation. ECHO was done which showed: "left ventricle is normal size. borderline concentric left ventricular hypertrophy, left ventricular function is normal, left ventricular ejection fraction is within normal range. normal LV segmental wall motion. Trasmitral doppler flow pattern is grade 1-abnormal relaxation pattern." Lower venous edema was seen thus a venous doppler was done which was negative. D -dimer was low. She initially complained of shortness of breath but this resolved on it's own and she was saturating well on room air. She had a PERC score of 0. A Chest CTA was not necessary. Patient also had uncontrolled hypertension. She was given norvasc 10mg and Imdur 30mg. She developed a headache after taking the Imdur thus we started her on Toprol XL 50mg (as recommended by Cardiology) and reduced her Norvasc to 5mg. This combo worked well for her. Please see latest progress note shown below for futher details regarding her management: 1. Chest pain * observation to telemetry * EVELIO: 3 points * ASCVD: 8.2% risk of cardiovascular event in next 10 years * Cardiology: Dr Juju Eng senior communications specialist-->help appreciated * Aspirin 81mg PO daily * SERA X3: negative * Hgb1c: 5.6 * Lipid Panel TG 151, Cholesterol 217, LDL 143, HDL 41 * TSH, T4 within normal range * Crestor 10mg POqHS * Echocardiogram (07/30/17): left ventricle is normal size. borderline concentric left ventricular hypertrophy, left ventricular function is normal, left ventricular ejection fraction is within normal range. normal LV segmental wall motion. Trasmitral doppler flow pattern is grade 1-abnormal relaxation pattern * Chest xray (07/30/17): no acute changes * proBNP: normal 2. Shortness of Breathe (resolved) * d-dimer 231 * Perc score of 0 * Patient is saturating well on room air. in no acute distress. * Chest xray (07/30/17): no acute changes 3. Uncontrolled hypertension * Echocardiogram (07/30/17): left ventricle is normal size. borderline concentric left ventricular hypertrophy, left ventricular function is normal, left ventricular ejection fraction is within normal range. normal LV segmental wall motion. Trasmitral doppler flow pattern is grade 1-abnormal relaxation pattern * Given norvasc 10mg PO daily * Held Imdur 30mg PO daily SE: headache * Start Toprol XL 50mg PO daily * Aspirin 81mg PO daily 4. 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 Prophylaxis * Pepcid 20mg po daily * Heparin 5000 u sc q8h, SCDs Discharge Exam - Additional Findings Additional findings: - Constitutional Appears: Non-toxic, No Acute Distress - Head Exam Head Exam: ATRAUMATIC, NORMAL INSPECTION, NORMOCEPHALIC - Eye Exam Eye Exam: EOMI, Normal appearance Pupil Exam: NORMAL ACCOMODATION, PERRL - ENT Exam ENT Exam: Mucous Membranes Moist, Normal Exam - Neck Exam Neck Exam: Full ROM. absent: Thyromegaly - Respiratory Exam Respiratory Exam: Clear to Ausculation Bilateral, NORMAL BREATHING PATTERN. absent: Accessory Muscle Use - Cardiovascular Exam Cardiovascular Exam: REGULAR RHYTHM, +S1, +S2. absent: Bradycardia, Tachycardia Additional comments: reproducible chest pain on palpation - GI/Abdominal Exam GI & Abdominal Exam: Soft, Normal Bowel Sounds. absent: Tenderness, Hyperactive Bowel Sounds, Organomegaly - Extremities Exam Extremities Exam: Full ROM, Normal Capillary Refill, Normal Inspection. absent : Pedal Edema - Back Exam Back Exam: Full ROM, NORMAL INSPECTION. absent: paraspinal tenderness - Neurological Exam Neurological Exam: Awake, CN II-XII Intact, Oriented x3 - Psychiatric Exam Psychiatric exam: Normal Affect, Normal Mood - Skin Skin Exam: Dry, Intact, Normal Color, Warm Discharge Plan - Discharge Medications Prescriptions: Aspirin [Aspirin Chewable] 81 mg PO DAILY 30 Days #30 chew Atorvastatin [Lipitor] 20 mg PO HS 30 Days #30 tab Metoprolol Succinate XL [Toprol XL] 50 mg PO BRK 30 Days #30 tab - Follow Up Plan Condition: GOOD Disposition: HOME/ ROUTINE Instructions: Heart Healthy Diet, High Blood Pressure (DC), Chest Pain (DC), Atorvastatin Additional Instructions: Patient is medically stable for discharge. Patient should establish care with our [facility] (Ph: [phone]). Once she establishes care she can be referred to a facialist who can performed a stress test (the treadmill test) to assess if there is any pathology related to her heart. Patient will be given scripts for the following new medications: 1. Aspirin 81mg by mouth once a day (this is to protect your heart) 2. Lipitor 20mg by mouth once a day at bedtime (this is to reduce cholesterol) 3. Metoprolol Succinate (Toprol) 50mg once a day by mouth (this is to protect your heart) You will be given a 30 day supply for these medications. For re-fills who need to go see a Primary Medical Doctor (such as one at the [facility], phone number above) Please consider a low fat diet, exercise, less red meat and low salt diet. If symptoms worsen or return, promptly return to the emergency department. Referrals: [facility] [Outside] Nicole Arenas MD [Staff Provider] - <Meredith Pepe V - Last Filed: 08/01/17 16:38> Provider - Provider Date of Admission: 07/31/17 19:12 Attending physician: Meredith Pepe DO Hospital Course - Lab Results Lab Results: Most Recent Lab Values WBC 8.3 K/uL (4.8-10.8) 07/30/17 04:42 RBC 3.97 Mil/uL (3.80-5.20) 07/30/17 04:42 Hgb 12.2 g/dL (11.0-16.0) 07/30/17 04:42 Hct 35.3 % (34.0-47.0) 07/30/17 04:42 MCV 88.9 fL (81.0-99.0) 07/30/17 04:42 MCH 30.7 pg (27.0-31.0) 07/30/17 04:42 MCHC 34.5 g/dL (33.0-37.0) 07/30/17 04:42 RDW 12.7 % (11.5-14.5) 07/30/17 04:42 Plt Count 261 K/uL (130-400) 07/30/17 04:42 MPV 7.4 fL (7.2-11.7) 07/30/17 04:42 Neut % (Auto) 50.6 % (50.0-75.0) 07/30/17 04:42 Lymph % (Auto) 41.9 % (20.0-40.0) H 07/30/17 04:42 [place] % (Auto) 6.0 % (0.0-10.0) 07/30/17 04:42 Eos % (Auto) 1.0 % (0.0-4.0) 07/30/17 04:42 Baso % (Auto) 0.5 % (0.0-2.0) 07/30/17 04:42 Neut # (Auto) 4.2 K/uL (1.8-7.0) 07/30/17 04:42 Lymph # (Auto) 3.5 K/uL (1.0-4.3) 07/30/17 04:42 [place] # (Auto) 0.5 K/uL (0.0-0.8) 07/30/17 04:42 Eos # (Auto) 0.1 K/uL (0.0-0.7) 07/30/17 04:42 Baso # (Auto) 0.0 K/uL (0.0-0.2) 07/30/17 04:42 PT 11.4 SECONDS (9.7-12.2) 07/30/17 04:42 INR 1.0 07/30/17 04:42 APTT 30 SECONDS (21-34) 07/30/17 04:42 D-Dimer, Quantitative 231 ng/mlDDU (0-243) 07/30/17 08:21 Sodium 141 mmol/L (132-148) 07/31/17 14:03 Potassium 3.8 mmol/L (3.6-5.2) 07/31/17 14:03 Chloride 104 mmol/L (98-107) 07/31/17 14:03 Carbon Dioxide 26 mmol/L (22-30) 07/31/17 14:03 Anion Gap 15 (10-20) 07/31/17 14:03 BUN 10 mg/dL (7-17) 07/31/17 14:03 Creatinine 0.9 mg/dL (0.7-1.2) 07/31/17 14:03 Est GFR ( Amer) > 60 07/31/17 14:03 Est GFR (Non-Af Amer) > 60 07/31/17 14:03 Random Glucose 99 mg/dL (65-105) 07/31/17 14:03 Hemoglobin A1c 5.6 % (4.2-6.5) 07/30/17 11:53 Calcium 8.9 mg/dl (8.6-10.4) 07/31/17 14:03 Phosphorus 3.5 mg/dL (2.5-4.5) 07/31/17 14:03 Magnesium 1.9 mg/dL (1.6-2.3) 07/31/17 14:03 Total Bilirubin 0.3 mg/dL (0.2-1.3) 07/31/17 14:03 AST 20 U/L (14-36) 07/31/17 14:03 ALT 25 U/L (9-52) 07/31/17 14:03 Alkaline Phosphatase 57 U/L (38-126) 07/31/17 14:03 Total Creatine Kinase 92 U/L (30-135) 07/31/17 14:03 CK-MB (Mass) < 0.22 ng/mL (0.0-3.38) 07/31/17 14:03 Troponin I < 0.0120 ng/mL (0.00-0.120) 07/31/17 14:03 NT-Pro-B Natriuret Pep 20.5 pg/mL (0-450) 07/30/17 13:36 Total Protein 7.5 g/dL (6.3-8.3) 07/31/17 14:03 Albumin 3.8 g/dL (3.5-5.0) 07/31/17 14:03 Globulin 3.7 gm/dL (2.2-3.9) 07/31/17 14:03 Albumin/Globulin Ratio 1.0 (1.0-2.1) 07/31/17 14:03 Triglycerides 151 mg/dL (0-149) H 07/30/17 11:53 Cholesterol 217 mg/dL (0-199) H 07/30/17 11:53 LDL Cholesterol Direct 143 mg/dL (0-129) H 07/30/17 11:53 HDL Cholesterol 41 mg/dL (30-70) 07/30/17 11:53 Free T4 0.89 ng/dL (0.78-2.19) 07/30/17 11:53 TSH 3rd Generation 3.22 mIU/L (0.46-4.68) 07/30/17 11:53 Urine Color Straw (YELLOW) 07/30/17 05:47 Urine Clarity Clear (Clear) 07/30/17 05:47 Urine pH 6.0 (5.0-8.0) 07/30/17 05:47 Ur Specific [place] 1.008 (1.003-1.030) 07/30/17 05:47 Urine Protein Negative mg/dL (NEGATIVE) 07/30/17 05:47 Urine Glucose (UA) Normal mg/dL (Normal) 07/30/17 05:47 Urine Ketones Negative mg/dL (NEGATIVE) 07/30/17 05:47 Urine Blood Negative (NEGATIVE) 07/30/17 05:47 Urine Nitrate Negative (NEGATIVE) 07/30/17 05:47 Urine Bilirubin Negative (NEGATIVE) 07/30/17 05:47 Urine Urobilinogen Normal mg/dL (0.2-1.0) 07/30/17 05:47 Ur Leukocyte Esterase Neg Juan Carlos/uL (Negative) 07/30/17 05:47 Urine WBC (Auto) < 1 /hpf (0-5) 07/30/17 05:47 Urine RBC (Auto) 1 /hpf (0-3) 07/30/17 05:47 Ur Squamous Epith Cells < 1 /hpf (0-5) 07/30/17 05:47 Urine Bacteria Rare (<OCC) 07/30/17 05:47 Urine HCG, Qual Negative (NEGATIVE) 07/30/17 05:47 Attending/Attestation - Attestation I have personally seen and examined this patient.: Yes I have fully participated in the care of the patient.: Yes I have reviewed all pertinent clinical information, including history, physical exam and plan: Yes Notes (Text): Patient seen, examined and case discussed with clinical medical transcriptionist. Patient seen this morning. Patient reports she is asymptomatic. She denies headache and chest pain has resolved. Patient is medically stable for discharge. Patient is to discontinue Norvasc at this time. Resident to addendum the note. Patient's blood pressure controlled on single agent. Patient had side effect of headache with imdur which was persistent and discontinued during hospitalization. Patient advised to take the following medications: Medications: 1) Aspirin 81mg once a day 2) Toprol XL 50mg once a day 3) Lipitor 40mg once in the evening Patient recommended to follow-up with her PMD, and if she does not have PMD, she is recommended to follow-up at the [facility] ([phone] ) wherein she can get a referral to cardiology. Patient is recommended for outpatient stress test by facialist senior communications specialist during this admission. This is a summary of patient's hospitalization. Please see EMR for further details. Discharge Diagnoses: 1. Chest pain (resolved) * observation to telemetry * EVELIO: 3 points * ASCVD: 8.2% risk of cardiovascular event in next 10 years * Cardiology: Dr Juju Eng senior communications specialist-->help appreciated * SERA X4: negative * Hgb1c: 5.6 * Lipid Panel TG 151, Cholesterol 217, LDL 143, HDL 41 * Hgb1c: 5.6 * TSH, T4 within normal range * Echocardiogram (07/30/17): left ventricle is normal size. borderline concentric left ventricular hypertrophy, left ventricular function is normal, left ventricular ejection fraction is within normal range. normal LV segmental wall motion. Trasmitral doppler flow pattern is grade 1-abnormal relaxation pattern * Chest xray (07/30/17): no acute changes * proBNP: normal * Upon discharge, patient is recommended for outpatient stress test and to obtain referral to follow-up with cardiology. Patient recommended to continue Aspirin 81mg PO daily, start Toprol XL 50mg once a day, and Lipitor 20mg once in the evening (changed from Crestor due to cost and affordability). 2. Shortness of Breathe (resolved) * d-dimer 231 * Perc score of 0 * Patient is saturating well on room air. in no acute distress. * Chest xray (07/30/17): no acute changes 3. Uncontrolled hypertension-->Chronic/Controlled * Echocardiogram (07/30/17): left ventricle is normal size. borderline concentric left ventricular hypertrophy, left ventricular function is normal, left ventricular ejection fraction is within normal range. normal LV segmental wall motion. Trasmitral doppler flow pattern is grade 1-abnormal relaxation pattern * D/c norvasc 10mg PO daily * D/c Imdur 30mg PO daily SE: headache * Continue Toprol XL 50mg PO daily-->which is new medication for the patient * Continue Aspirin 81mg PO daily * Recommended for lifestyle modifications including low salt diet 4. 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 Prophylaxis * Pepcid 20mg po daily * Heparin 5000 u sc q8h, SCDs
== END 2017-08-01 12:03 | disposition home or self-care (01) | DRG 143 ==
LOC: C.ER 03:35 → C.6T 05:47 → C.9E 05:59 → C.6T 06:12 → OBSVTOIN 07-31 19:12
PROVIDERS: ADMIT Hospitalist; ATTEND Hospitalist
DX: R07.89 Other chest pain (principal); I11.9 Hypertensive heart disease without heart failure; E78.00 Pure hypercholesterolemia, unspecified; E78.1 Pure hyperglyceridemia; I51.7 Cardiomegaly

== ENCOUNTER 2018-09-24 15:24 | Emergency (ER) | payer MEDICAID, OTHER ==
[2018-09-24 15:25] VITALS: BMI 36.0
[2018-09-24 15:55] VITALS: BP 122/81; PULSE 87; RESP 18; TEMP 98.7; O2SAT 100
[2018-09-24] MEDS ORDERED: Sodium Chloride 0.9% Inh Soln (3mL) UD INH ONE (16:18)
--- NOTE | 2018-09-24 17:04 | C.PDOC ---
History Of Present Illness 48-year-old female presents to the ED for evaluation of fever, ear pain, sore throat, cough and body aches which began 4-5 days ago. Patient states she has been taking Aspirin for her symptoms, since she is allergic to Tylenol and Motrin, without relief. She denies nausea, vomiting. no chest pain. grandchildren were recently unwell. Time Seen by Provider: 09/24/18 15:37 Chief Complaint (Nursing): Cough, Cold, Congestion History Per: Patient History/Exam Limitations: no limitations Onset/Duration Of Symptoms: Days (2-3) Current Symptoms Are (Timing): Still Present Location Of Pain: Diffuse Myalgias Associated Symptoms: Fever, Sore Throat, Cough Ear Symptoms: Bilateral: Ear Pain Additional History Per: Patient Past Medical History Reviewed: Historical Data, Nursing Documentation, Vital Signs Vital Signs: Last Vital Signs Temp 98.7 F 09/24/18 15:37 Pulse 87 09/24/18 15:37 Resp 18 09/24/18 15:37 BP 122/81 09/24/18 15:37 Pulse Ox 100 09/24/18 15:37 Primary Care Provider: Mohinder Su Jr. - Medical History PMH: HTN Denies: Chronic Kidney Disease Surgical History: No Surg Hx Family History: States: Unknown Family Hx - Social History Hx Alcohol Use: No Hx Substance Use: No - Immunization History Hx Tetanus Toxoid Vaccination: No Hx Influenza Vaccination: No Hx Pneumococcal Vaccination: No Review Of Systems Constitutional: Positive for: Fever ENT: Positive for: Ear Pain, Throat Pain Respiratory: Positive for: Cough Gastrointestinal: Negative for: Nausea, Vomiting Musculoskeletal: Positive for: Other (generalized body aches ) Physical Exam - Physical Exam Appears: Non-toxic, No Acute Distress Skin: Normal Color, Warm, Dry Head: Atraumatic, Normacephalic Eye(s): bilateral: Normal Inspection Ear(s): Bilateral: Normal Nose: Normal, No Discharge Oral Mucosa: Moist Throat: Normal, No Erythema, No Exudate Neck: Supple Chest: Symmetrical, No Deformity, No Tenderness Cardiovascular: Rhythm Regular, No Murmur Respiratory: Normal Breath Sounds, No Rales, No Rhonchi, No Wheezing Extremity: Normal ROM, Capillary Refill (less than 2 seconds ) Neurological/Psych: Oriented x3, Normal Speech, Normal Cognition ED Course And Treatment O2 Sat by Pulse Oximetry: 100 (on RA) Pulse Ox Interpretation: Normal Medical Decision Making Medical Decision Making: Impression: 48 year old female with fever, sore throat, ear pain, cough, and body aches Plan: * Claritin PO * Solidum Chloride INH * reassess and disposition Progress: Clairitin PO and Sodium Chloride INH given. On reassessment, patient is resting comfortably, showing no signs of distress and reports an improvement in her symptoms. Patient is stable for discharge and is advised to follow-up with her PMD within 2-3 days for further evaluation. Disposition - Disposition Referrals: Mohinder Su Jr., MD [Medical Doctor] - Disposition: HOME/ ROUTINE Disposition Time: 17:10 Condition: GOOD Additional Instructions: Drink increased fluids. Take loratidine once a day. Use nasal saline and Flonase as directed. Follow up with Dr Su in 2-3 days. [facility] Prescriptions: Fluticasone Nasal [Flonase] 1 actuation NS DAILY #1 bottle Loratadine 10 mg PO DAILY #30 tablet Sodium Chloride [[place] Saline] 1 spray NS TID #1 bottle Instructions: Upper Respiratory Infection (ED) Forms: [facility] ([place]), General Discharge Instructions - Clinical Impression Clinical Impression: Upper respiratory infection - PA / [employer] / Resident Statement MD/DO has reviewed & agrees with the documentation as recorded. - Scribe Statement The provider has reviewed the documentation as recorded by the Scribe (Lata Eng) All medical record entries made by the Scribe were at my direction and personally dictated by me. I have reviewed the chart and agree that the record accurately reflects my personal performance of the history, physical exam, medical decision making, and the department course for this patient. I have also personally directed, reviewed, and agree with the discharge instructions and disposition.
== END 2018-09-24 17:52 | disposition home or self-care (01) ==
LOC: C.ER 15:24
DX: J06.9 Acute upper respiratory infection, unspecified (principal)